=== PATIENT | male | born 1970 | race Caucasian/White ===

== ENCOUNTER → 2016-12-13 | Outpatient (CLI) | payer MEDICAID ==
[2016-12-13 07:57] LABS: CH 31.2; CHCM 34.2; HCT 47.3 % (39.0-53.0); HGB 15.8 gm/dL (13.0-17.5); MCH 30.7 pg (25.0-35.0); MCHC 33.5 g/dL (31.0-37.0); MCV 91.6 fL (80.0-100.0); Mean Platelet Volume 6.5; RBC 5.17 m/uL (4.30-5.90); RDW 12.4 % (11.5-15.5); WBC 6.9 k/uL (3.8-10.6)
[2016-12-13 08:04] LABS: ALT 77 U/L (21-72); AST 43 U/L (17-59); Alkaline Phosphatase 64 U/L (38-126); Anion Gap 11 mmol/L; Blood Urea Nitrogen 16 mg/dL (9-20); Calcium 9.6 mg/dL (8.4-10.2); Carbon Dioxide 28 mmol/L (22-30); Chloride 104 mmol/L (98-107); Cholesterol 191 mg/dL (<200); Glucose 116 mg/dL (74-99); HDL Cholesterol 37 mg/dL (40-60); Non-African American GFR(MDRD) >60 (>60 ml/min/1.73 sqM); Potassium 4.9 mmol/L (3.5-5.1); Sodium 143 mmol/L (137-145); Total Bilirubin 0.8 mg/dL (0.2-1.3); Triglycerides 262 mg/dL (<150)
[2016-12-13 08:59] LABS: Hemoglobin A1C 6.1 % (4.2-6.1)
== END | disposition home or self-care (01) ==
LOC: LABWHC1 07:03
PROVIDERS: ATTEND Internal Medicine
DX: E11.9 Type 2 diabetes mellitus without complications (principal); I10 Essential (primary) hypertension
CPT/HCPCS: 36415; 80053; 80061; 83036; 85027

== ENCOUNTER → 2017-07-25 | Outpatient (CLI) | payer MEDICAID ==
--- NOTE | 2017-07-25 12:44 | US ---
EXAMINATION TYPE: US thyroid st tissue head/neck DATE OF EXAM: 07/25/2017 COMPARISON: US 06/06. CLINICAL HISTORY: E04.1 Left thyroid nodule, prior benign biopsy Correlation to prior exam dated May. GLAND SIZE: Right Lobe: 5.8 x 1.9 x 1.7cm Overall Parenchyma: homogeneous Left Lobe: 5.5 x 1.7 x 2.1 cm Overall Parenchyma: homogeneous Isthmus Thickness: 0.6 cm NODULES RIGHT: # of nodules measured on right: 0 LEFT: # of nodules measured on left: 1 1. 1.7 x 1.2 x 1.8cm heterogeneous nodule with solid and cystic components at the lower pole. This nodule is wider than tall and shows some intranodular vascularity. It is noted that this nodule was p reviously biopsied with benign pathology. prior size: 2.0 x 1.2 x 1.7 cm ISTHMUS: # of nodules measured within isthmus: 0 Bilateral neck scanned, no evidence of lymphadenopathy. IMPRESSION: Stability of the previously biopsied pathologically proven benign left thyroid nodule in an enlarged thyroid gland.
== END | disposition home or self-care (01) ==
LOC: RADUSWWP 10:19
PROVIDERS: ATTEND Otolaryngology
DX: E04.1 Nontoxic single thyroid nodule (principal)
CPT/HCPCS: 76536

== ENCOUNTER → 2018-01-31 | Outpatient (CLI) | payer MEDICAID ==
[2018-01-31 08:06] LABS: HCT 48.4 % (39.0-53.0); HGB 16.2 gm/dL (13.0-17.5); MCH 29.8 pg (25.0-35.0); MCHC 33.4 g/dL (31.0-37.0); MCV 89.2 fL (80.0-100.0); Mean Platelet Volume 7.1; Platelet Count 260 k/uL (150-450); RBC 5.43 m/uL (4.30-5.90); RDW 12.1 % (11.5-15.5); WBC 7.3 k/uL (3.8-10.6)
[2018-01-31 08:52] LABS: ALT 110 U/L (21-72); AST 49 U/L (17-59); Albumin 4.5 g/dL (3.5-5.0); Alkaline Phosphatase 78 U/L (38-126); Anion Gap 14 mmol/L; Blood Urea Nitrogen 25 mg/dL (9-20); Calcium 9.7 mg/dL (8.4-10.2); Carbon Dioxide 26 mmol/L (22-30); Chloride 104 mmol/L (98-107); Cholesterol 188 mg/dL (<200); Glucose 130 mg/dL (74-99); HDL Cholesterol 37 mg/dL (40-60); LDL Cholesterol,Calculated 111 mg/dL (0-99); Potassium 5.1 mmol/L (3.5-5.1); Sodium 144 mmol/L (137-145); Total Bilirubin 0.7 mg/dL (0.2-1.3); Total Protein 7.1 g/dL (6.3-8.2); Triglycerides 200 mg/dL (<150)
[2018-01-31 19:08] LABS: Hemoglobin A1C 6.4 % (4.0-6.0)
== END | disposition home or self-care (01) ==
LOC: LABWHC1 07:29
PROVIDERS: ATTEND Internal Medicine
DX: E11.9 Type 2 diabetes mellitus without complications (principal); E78.5 Hyperlipidemia, unspecified
CPT/HCPCS: 36415; 80053; 80061; 83036; 84403; 85027

== ENCOUNTER → 2018-06-03 | Outpatient (CLI) | payer MEDICAID ==
[2018-06-03 10:08] LABS: Anion Gap 6 mmol/L; Blood Urea Nitrogen 18 mg/dL (9-20); Calcium 9.5 mg/dL (8.4-10.2); Carbon Dioxide 29 mmol/L (22-30); Chloride 104 mmol/L (98-107); Glucose 115 mg/dL (74-99); Potassium 4.7 mmol/L (3.5-5.1); Sodium 139 mmol/L (137-145)
== END | disposition home or self-care (01) ==
LOC: LABWHC1 08:54
PROVIDERS: ATTEND Internal Medicine
DX: E11.9 Type 2 diabetes mellitus without complications (principal)
CPT/HCPCS: 36415; 80048; 83036

== ENCOUNTER → 2018-09-24 | Outpatient (CLI) | payer MEDICAID ==
--- NOTE | 2018-09-24 12:01 | US ---
EXAMINATION TYPE: US thyroid st tissue head/neck DATE OF EXAM: 09/24/2018 COMPARISON: US CLINICAL HISTORY: E04.1 Left Thyroid Nodule. GLAND SIZE: Right Lobe: 5.8 x 2.4 x 1.7 cm Overall Parenchyma: heterogenous Left Lobe: 5.0 x 2.0 x 2.3 cm Overall Parenchyma: heterogeneous Isthmus Thickness: 0.7 cm NODULES RIGHT: # of nodules measured on right: 0 LEFT: # of nodules measured on left: 1 1. 1.8 X 1.3 x 1.4 cm isoechoic mixed nodule at the upper pole with well-defined margins. This nod ule is wider than tall and shows intranodular vascularity. Prior size: 1.7 x 1.2 x 1.8 cm ISTHMUS: # of nodules measured in the isthmus: 0 Bilateral neck scanned, no evidence of lymphadenopathy. IMPRESSION: Left thyroid nodule shows a stable appearance.
== END ==
LOC: RADUSWWP 09:10
PROVIDERS: ATTEND Otolaryngology
DX: E04.1 Nontoxic single thyroid nodule (principal)
CPT/HCPCS: 76536

== ENCOUNTER → 2018-10-01 | Outpatient (CLI) | payer MEDICAID ==
[2018-10-01 15:55] LABS: Anion Gap 5.9 mmol/L (4.00-12.00); Calcium 9.4 mg/dL (8.7-10.3); Carbon Dioxide 28.1 mmol/L (21.6-31.8)
[2018-10-01 16:41] LABS: Hemoglobin A1C 6.2 % (4.0-6.0)
== END | disposition home or self-care (01) ==
LOC: LABWHC1 08:26
PROVIDERS: ATTEND Internal Medicine
DX: E11.9 Type 2 diabetes mellitus without complications (principal); E78.5 Hyperlipidemia, unspecified; Z12.5 Encounter for screening for malignant neoplasm of prostate
CPT/HCPCS: 80061; 80048; 83036; 36415; G0103

== ENCOUNTER 2018-11-22 07:07 | Day surgery (SDC) | payer MEDICAID ==
[2018-11-20 15:07] VITALS: BMI 35.7
[~2018-11-22 07:07] MED LIST: LACTATED RINGERS 1,000 ML IV SCH; LIDOCAINE 1% 20 ML VIAL (10MG/ML) FOR IV START INTRADERMA PRN
[2018-11-22 07:38] VITALS: TEMP 97.3
[2018-11-22] MEDS ORDERED: LIDOCAINE 1% INJ 10MG/ML (20 ML MDV) ONE (07:49)
[2018-11-22] MEDS ORDERED: PROPOFOL 10 MG/ML 20 ML VIAL IV ONE (07:49)
--- NOTE | 2018-11-22 07:55 | P.GSHP ---
History of Present Illness H&P Date: 11/22/18 Chief Complaint: Colon cancer screening Patient here today for screening colonoscopy. He has not had one previously. No bowel complaints. No family history of colon cancer. Past Medical History Past Medical History: Diabetes Mellitus, GERD/Reflux, Hypertension, Thyroid Disorder Additional Past Medical History / Comment(s): Hx. of thyroid cyst. History of Any Multi-Drug Resistant Organisms: None Reported Past Surgical History: Cholecystectomy, Tonsillectomy Additional Past Surgical History / Comment(s): lt knee surgery, growth removed from throat. Varicose vein surgery. Past Anesthesia/Blood Transfusion Reactions: No Reported Reaction Smoking Status: Never smoker - Past Family History Mother Family Medical History: Cancer Additional Family Medical History / Comment(s): skin cancer Medications and Allergies Home Medications Medication Instructions Recorded Confirmed Type Aspirin 81 mg PO DAILY 06/28/16 11/22/18 History Atenolol [Tenormin] 25 mg PO DAILY 06/28/16 11/22/18 History Cinnamon Bark [Cinnamon] 500 mg PO DAILY 06/28/16 11/22/18 History Cyanocobalamin (Vitamin B-12) 5,000 mcg PO DAILY 06/28/16 11/22/18 History [Vitamin B12] Lisinopril [Zestril] 20 mg PO DAILY 06/28/16 11/22/18 History [place]-3 Fatty Acids/Fish Oil [Fish 1 each PO DAILY 06/28/16 11/22/18 History Oil 1,000 mg Softgel] Omeprazole [PriLOSEC] 20 mg PO AC-BRKFST 06/28/16 11/22/18 History metFORMIN HCL [Glucophage] 500 mg PO DAILY 06/28/16 11/22/18 History Cholecalciferol (Vitamin D3) 2,000 unit PO DAILY 11/20/18 11/22/18 History [Vitamin D3] Magnesium 200 mg PO DAILY 11/20/18 11/22/18 History Multivitamin [Multivitamins Adult 1 each PO DAILY 11/20/18 11/22/18 History Gummies] Turmeric Root Extract [Turmeric] 500 mg PO DAILY 11/20/18 11/22/18 History Allergies Allergy/AdvReac Type Severity Reaction Status Date / Time ibuprofen Allergy Swelling Verified 11/20/18 14:29 Penicillins Allergy Rash/Hives Verified 11/20/18 14:29 Surgical - Exam Vital Signs Temp Pulse Resp BP Pulse Ox 97.3 F L 71 18 137/87 95 11/22/18 07:30 11/22/18 07:30 11/22/18 07:30 11/22/18 07:30 11/22/18 07:30 Physical exam: General: Well-developed, well-nourished HEENT: Normocephalic, sclerae nonicteric Abdomen: Nontender, nondistended Extremities: No edema Neuro: Alert and oriented Assessment and Plan (1) Colon cancer screening Narrative/Plan: Will proceed with colonoscopy at this time Current Visit: Yes Status: Acute Code(s): Z12.11 - ENCOUNTER FOR SCREENING FOR MALIGNANT NEOPLASM OF COLON SNOMED Code(s): 978906841
[2018-11-22 07:59] LABS: Glucose,Whole Blood 138 mg/dL (75-99)
[2018-11-22 08:16] VITALS: RESP 16
[2018-11-22 08:32] VITALS: BP 125/88; PULSE 77
--- NOTE | 2018-11-22 10:33 | P.PCN ---
Date of Procedure: 11/22/18 Procedure(s) Performed: PREOPERATIVE DIAGNOSIS: Colon cancer screening POSTOPERATIVE DIAGNOSIS: Diverticulosis PROCEDURE: Colonoscopy ANESTHESIA: MAC SURGEON: Cirilo Oro M.D. SPECIMENS: None ENDOSCOPIC PROCEDURE: The patient was placed on the endoscopy table in the left decubitus position. The Olympus colonoscope was inserted into the anus and passed under direct visualization to the base of the cecum. The appendiceal orifice was visualized. From that point the scope was slowly withdrawn inspecting all surfaces carefully. There were no neoplastic inflammatory or polypoid lesions throughout the cecum, ascending, transverse, descending, sigmoid and rectum. There was mild left-sided diverticulosis noted. Digital rectal examination was normal. The patient was taken to the recovery room in stable condition per anesthesia guidelines. RECOMMENDATIONS: increase fiber. Follow-up colonoscopy in 10 years.
== END 2018-11-22 08:55 | disposition home or self-care (01) ==
LOC: ORWHC2ENDO 07:07
PROVIDERS: ATTEND Surgery
DX: Z12.11 Encounter for screening for malignant neoplasm of colon (principal); K57.30 Diverticulosis of large intestine without perforation or abscess without bleeding; E11.9 Type 2 diabetes mellitus without complications; K21.9 Gastro-esophageal reflux disease without esophagitis; I10 Essential (primary) hypertension; E07.9 Disorder of thyroid, unspecified; Z79.84 Long term (current) use of oral hypoglycemic drugs; Z79.82 Long term (current) use of aspirin; Z79.899 Other long term (current) drug therapy; Z88.6 Allergy status to analgesic agent; Z88.0 Allergy status to penicillin; Z90.49 Acquired absence of other specified parts of digestive tract
CPT/HCPCS: J2001; J2704; G0121

== ENCOUNTER → 2019-10-07 | Outpatient (CLI) | payer MEDICAID ==
--- NOTE | 2019-10-07 10:30 | US ---
EXAMINATION TYPE: US thyroid st tissue head/neck DATE OF EXAM: 10/07/2019 COMPARISON: Exams dating back to 07/25/2017. CLINICAL HISTORY: E04.1 THYROID NODULE. GLAND SIZE: Right Lobe: 5.5 x 2.5 x 1.7 cm Overall Parenchyma: heterogenous Left Lobe: 4.9 x 2.0 x 2.6 cm Overall Parenchyma: heterogeneous Isthmus Thickness: 0.5 cm NODULES RIGHT: # of nodules measured on right: 0 LEFT: # of nodules measured on left: 1 1. 1.8 X 1.5 x 1.6 cm hypoechoic solid nodule at the mid pole with well-defined margins. This nodu le is wider than tall and shows intranodular vascularity. Prior size: 1.8 x 1.3 x 1.4 cm ISTHMUS: # of nodules measured in the isthmus: 0 Bilateral neck scanned, no evidence of lymphadenopathy. IMPRESSION: Similar size of the left thyroid nodule in comparison to exams dating back to 07/25/2017.
== END | disposition home or self-care (01) ==
LOC: RADUSWWP 09:26
PROVIDERS: ATTEND Otolaryngology
DX: E04.1 Nontoxic single thyroid nodule (principal)
CPT/HCPCS: 76536

== ENCOUNTER → 2019-10-07 | Outpatient (CLI) | payer MEDICAID ==
[2019-10-07 17:15] LABS: Chol/HDL Ratio 4.34; LDL Cholesterol,Calculated 116.2 mg/dL (0.0-131.0); VLDL Calculation 30.8 mg/dL (5.00-40.00)
== END | disposition home or self-care (01) ==
LOC: LABWHC1 09:29
PROVIDERS: ATTEND Internal Medicine
DX: E78.5 Hyperlipidemia, unspecified (principal); E11.9 Type 2 diabetes mellitus without complications
CPT/HCPCS: 36415; 80061; 82043; 82570; 83036

== ENCOUNTER → 2019-10-13 | Outpatient (CLI) | payer MEDICAID ==
[2019-10-13 14:55] LABS: African American GFR (CKD) >90 (>60 ml/min/1.73 sqM); Blood Urea Nitrogen 17 mg/dL (9-20); Non-African American GFR(CKD) >90 (>60 ml/min/1.73 sqM)
--- NOTE | 2019-10-13 16:04 | CT ---
EXAMINATION TYPE: CT abdomen pelvis w con DATE OF EXAM: 10/13/2019 COMPARISON: 10/08/2016 HISTORY: Umbilical hernia and lower pelvic pain x2-[address] DLP: 1865.9 mGycm CONTRAST: CT scan of the abdomen and pelvis is performed with Oral Contrast and with IV Contrast, patient injec carmen with 100ml mL of Isovue 300. FINDINGS: LUNG BASES-: No visible nodule. No infiltrate. LIVER/GB: No calcified gallstones. No space occupying hepatic lesion. Biliary tree is of normal ca liber. Mild hepatic steatosis. PANCREAS: No inflammation. No distinct mass. SPLEEN: No splenic enlargement. No lesion seen. ADRENALS: No nodule. No thickening. KIDNEYS/BLADDER: No hydronephrosis. No nephrolithiasis. No distinct renal mass. Urinary bladder g rossly unremarkable. 9 mm right right renal cyst BOWEL: Normal appendix. Normal bowel caliber. No inflammation. GENITAL ORGANS: No gross abnormality. LYMPH NODES: No greater than 1cm abdominal or pelvic lymph nodes are appreciated. AORTA: No significant abnormality. OSSEOUS STRUCTURES: No significant abnormality is seen. OTHER: Fat-containing umbilical hernia measuring 1.7 x 3.0 cm. noted. IMPRESSION: 1. Fat-containing hernia otherwise unremarkable study. 2. Mild fatty liver.
== END | disposition home or self-care (01) ==
LOC: RADCTMAIN 13:49
PROVIDERS: ATTEND Surgery
DX: K76.0 Fatty (change of) liver, not elsewhere classified (principal); K42.9 Umbilical hernia without obstruction or gangrene
CPT/HCPCS: 82565; 84520; 74177; 36415; Q9967

== ENCOUNTER → 2020-04-30 | Outpatient (CLI) | payer MEDICAID | END | disposition home or self-care (01) | LOC: LABWHC1 11:44 | PROVIDERS: ATTEND Internal Medicine | DX: Z11.59 Encounter for screening for other viral diseases (principal); Z20.828 Contact with and (suspected) exposure to other viral communicable diseases | CPT/HCPCS: 36415 ==

== ENCOUNTER → 2020-09-27 | Outpatient (CLI) | payer MEDICAID ==
--- NOTE | 2020-09-29 22:49 | MR ---
EXAMINATION TYPE: MR shoulder RT wo con DATE OF EXAM: 09/27/2020 COMPARISON: Radiographs 06/20/2020 and priors HISTORY: Rt shoulder pain after fall TECHNIQUE: Multiplanar, multisequence imaging of the right shoulder is performed without contrast. FINDINGS: Rotator Cuff: High-grade articular surface, partial thickness of the supraspinatus tendon anterior fi bers. There is also moderate grade partial-thickness tear of the subscapularis tendon cranial fibers and infraspinatus tendon anterior fibers. The teres minor tendon is grossly intact. No significant mu scle atrophy or muscular edema. Acromioclavicular Joint: Severe osteoarthritis with moderate joint distention. There is increased mod erate T2 bone marrow signal within the distal clavicle articular surface. Glenohumeral Joint: Moderate osteoarthritis. Labrum: Degenerative tearing of the glenoid labrum. Biceps Tendon: The long head of biceps is in normal location within bicipital groove. Bone marrow signal: A 3.6 x 2.8 x 1.7 cm mildly heterogeneous low T1/low T2 bone marrow lesion in the proximal humeral diaphysis with mild increased T2 rim signal. Additional 1 x 0.8 cm bone marrow lesi on is also seen in the proximal humeral diaphysis, just distal to the larger lesion. The smaller lesi on is predominantly high T2/low T1 in signal with central low T1/low T2 focus. No evidence of osseous destruction, endosteal scalloping or aggressive periosteal reaction. No associated bone marrow edema or pathologic fracture. No soft tissue component. Other: No additional significant abnormality is appreciated. IMPRESSION: High-grade articular surface partial-thickness tear of the supraspinatus tendon. Moderate grade partial-thickness tear of the subscapularis and infraspinatus tendons. 2 proximal humerus bone marrow lesions with the larger measuring up to 3.6 cm without aggressive fea tures or soft tissue component. Findings date back to chest/rib radiographs from 03/04/2011, favoring benign entity such as enostosis/bone island. No evidence of pathologic fracture. Metastasis is felt to be less likely in the absence of known primary malignancy. However recommend fo llow-up contrast MRI in 6 months to one year to document stability as finding was partially imaged on prior radiographs. If there is development of pain or increase in size, contrast enhanced MRI should be performed sooner. Increased bone marrow signal in the articular right distal clavicle, can be seen with repetitive micr otrauma. Otherwise moderate to severe osteoarthritis of the acromioclavicular joint.
== END | disposition home or self-care (01) ==
LOC: RADMRIMAIN 10:27
PROVIDERS: ATTEND Orthopaedic Surgery
DX: M75.111 Incomplete rotator cuff tear or rupture of right shoulder, not specified as traumatic (principal); M25.811 Other specified joint disorders, right shoulder; M19.011 Primary osteoarthritis, right shoulder; R93.7 Abnormal findings on diagnostic imaging of other parts of musculoskeletal system

== ENCOUNTER → 2020-10-04 | Outpatient (CLI) | payer MEDICAID ==
--- NOTE | 2020-10-04 14:01 | US ---
EXAMINATION TYPE: US thyroid st tissue head/neck DATE OF EXAM: 10/04/2020 COMPARISON: US CLINICAL HISTORY: E04.1 Thyroid Nodule. GLAND SIZE: Right Lobe: 5.3 x 2.0 x 2.1 cm Overall Parenchyma: homogenous Left Lobe: 6.2 x 2.6 x 2.7 cm Overall Parenchyma: homogeneous Isthmus Thickness: 0.8 cm NODULES RIGHT: # of nodules measured on right: 0 LEFT: # of nodules measured on left: 2 1. 2.2 X 1.8 x 1.6 cm solid or almost completely solid, isoechoic nodule, which is wider than tall, with lobulated or irregular margins, with echogenic foci. Prior size: 1.8 x 1.6 x 1.5 cm 2. 1.0 X 1.1 x 0.8 cm spongiform, hypoechoic nodule, which is wider than tall, with ill-defined mar gins, without echogenic foci. Prior size: not seen previously ISTHMUS: # of nodules measured in the isthmus: 0 Bilateral neck scanned: inferior to right thyroid an oval hypoechoic nodule is seen (lymph node vs. p arathyroid nodule) = 0.8 x 0.9 x 0.4cm. IMPRESSION: Nonspecific thyroid nodularity noted.
== END | disposition home or self-care (01) ==
LOC: RADUSWWP 13:02
PROVIDERS: ATTEND Otolaryngology
DX: E04.1 Nontoxic single thyroid nodule (principal)
CPT/HCPCS: 76536

== ENCOUNTER 2020-10-29 13:00 | Day surgery (SDC) | payer MEDICAID ==
[2020-10-29 13:24] LABS: Glucose,Whole Blood 146 mg/dL (75-99)
[2020-10-29 13:34] VITALS: TEMP 98.7
[2020-10-29 14:29] VITALS: RESP 18
[2020-10-29 14:30] VITALS: BP 122/83; PULSE 80
--- NOTE | 2020-10-29 14:53 | US ---
ULTRASOUND GUIDED FNA THYROID BIOPSY: CLINICAL HISTORY: Request for right-sided subcentimeter nodule, lymph node or right parathyroid nodul e biopsy with left thyroid 1.1 cm biopsy. FINDINGS: The procedure was explained to the patient. The risks, complications, benefits and alternatives were discussed and any questions were answered. The right neck nodule could not be replicated on today's exam and therefore cannot be biopsied. Left neck roll was extending below the level of the clavicle and deep within the soft tissue the neck adjacent to the carotid artery. Safe percutaneous access could not be obtained. IMPRESSION: 1. Discontinued biopsy see above.
== END 2020-10-29 14:20 | disposition home or self-care (01) ==
LOC: RADPROMAIN 13:00
PROVIDERS: ATTEND Otolaryngology
DX: E04.1 Nontoxic single thyroid nodule (principal); Z53.09 Procedure and treatment not carried out because of other contraindication
CPT/HCPCS: 76536

== ENCOUNTER → 2022-10-25 | Outpatient (CLI) | payer MEDICAID ==
[2022-10-25 18:28] LABS: HCT 47.3 % (39.6-50.0); MCH 31.1 pg (27.0-32.0); MCHC 33.8 g/dL (32.0-37.0); MCV 91.8 fL (80.0-97.0); Mean Platelet Volume 9.9 fL (9.5-12.2); NRBC Per 100 WBC 0 /100 WBCS (0.0-0.0); Platelet Count 231 X 10*3/uL (140-440); RBC 5.15 X 10*6/uL (4.40-5.60); RDW 11.9 % (11.5-14.5); WBC 8.19 X 10*3/uL (4.50-10.00)
[2022-10-25 19:49] LABS: ALT 55 U/L (10-49); AST 31 U/L (14-35); African American GFR (CKD) 120.8 (60.0-200.0); Albumin/Globulin Ratio 2.35 (1.60-3.17); Alkaline Phosphatase 65 U/L (41-126); Blood Urea Nitrogen 13.5 mg/dL (9.0-27.0); Calcium 9.7 mg/dL (8.7-10.3); Carbon Dioxide 26.2 mmol/L (20.0-27.5); Chloride 101 mmol/L (96-109); Chol/HDL Ratio 5.12 Ratio; Globulin 2.1 g/dL (1.6-3.3); Glucose 149 mg/dL (70-110); LDL Cholesterol,Calculated 123.2 mg/dL (0.0-131.0); Non-African American GFR(CKD) 104.2 (60.0-200.0); Potassium 4.4 mmol/L (3.5-5.5); Sodium 139 mmol/L (135-145); Total Protein 7.1 g/dL (6.2-8.2)
== END | disposition home or self-care (01) ==
LOC: LABWHC1 13:01
PROVIDERS: ATTEND Family Medicine
DX: Z00.00 Encounter for general adult medical examination without abnormal findings (principal); E11.65 Type 2 diabetes mellitus with hyperglycemia
CPT/HCPCS: 36415; 80053; 80061; 83036; 84153; 84443; 85027

== ENCOUNTER → 2022-11-14 | Outpatient (CLI) | payer MEDICAID ==
--- NOTE | 2022-11-14 11:16 | CA ---
Exercise Stress Test Report Name: Jose D Arroyo Exam Date: 11/14/2022 09:03 Exam Location: [facility] Stress Ht (in): 68 Wt (lb): 225 BSA: 2.15 Ordering Phys: Heath Bowser MD Referring Phys: HARPREET, Technologist: MARIA,, Age: 52 Gender: M : 1970 Procedure CPT: Indications: Z82.49 FAM HX HEART DISEASE I10 HTN ICD-10 Codes: Patient History: Family history of heart disease Medications: Meds past 24 hrs: Pretest Chest Pain: STRESS TEST Chance Protocol Exercise Duration (min:sec): 11:[address] Depressions (mm): Angina Score: Alves Score: Resting HR (bpm): 88 Peak HR (bpm): 165 Resting BP (mmHg): 117 / 91 Peak BP (mmHg): 191 / 74 MPHR: 166 Target HR: 141 % MPHR: 99 METS: 12.1 Total Dose: Peak Dose: Atropine: Double Product: 90718 BP Response: Stress Termination: Reached target heart rate Stress Symptoms: No chest pain or symptoms Stress Summary: ECG ANALYSIS Resting ECG: Normal sinus rhythm normal axis normal intervals with evidence of prior inferior wall myocardial infarction Stress ECG: Patient exercised on Chance protocol for a total of 11 minutes achieving 12 mets 85% of predicted maximal heart rate without chest pain or diagnostic ST segment depression CONCLUSIONS Excellent exercise tolerance Negative stress test by EKG criteria Abnormal baseline EKG showing prior inferior wall myocardial infarction Dr. Shabbir Max MD (Electronically Signed) Final Date: 14 November 2022 11:15
== END | disposition home or self-care (01) ==
LOC: RADNMMAIN 08:36
PROVIDERS: ATTEND Family Medicine
DX: I10 Essential (primary) hypertension (principal); I25.2 Old myocardial infarction; Z82.49 Family history of ischemic heart disease and other diseases of the circulatory system
CPT/HCPCS: 93017

== ENCOUNTER → 2023-01-29 | Outpatient (CLI) | payer MEDICAID ==
[2023-01-29 11:18] LABS: HCT 43.3 % (39.6-50.0); HGB 14.8 g/dL (13.0-17.0); MCH 30.8 pg (27.0-32.0); MCHC 34.2 g/dL (32.0-37.0); Mean Platelet Volume 10.2 fL (9.5-12.2); NRBC Per 100 WBC 0 /100 WBCS (0.0-0.0); Platelet Count 199 X 10*3/uL (140-440); RBC 4.81 X 10*6/uL (4.40-5.60); RDW 11.7 % (11.5-14.5); WBC 6.41 X 10*3/uL (4.50-10.00)
[2023-01-29 11:22] LABS: African American GFR (CKD) 122.3 (60.0-200.0); Albumin 4.4 g/dL (3.8-4.9); Albumin/Globulin Ratio 2.19 (1.60-3.17); Anion Gap 10.6 mmol/L (10.00-18.00); BUN/Creat Ratio 27.9 Ratio (12.00-20.00); Blood Urea Nitrogen 20.2 mg/dL (9.0-27.0); Calcium 9.5 mg/dL (8.7-10.3); Non-African American GFR(CKD) 105.5 (60.0-200.0); Potassium 4.5 mmol/L (3.5-5.5); T4, Free (Free Thyroxine) 1.32 ng/dL (0.800-1.800); Total Bilirubin 0.4 mg/dL (0.30-1.20); Total Protein 6.4 g/dL (6.2-8.2)
== END | disposition home or self-care (01) ==
LOC: LABWHC1 07:27
PROVIDERS: ATTEND Family Medicine
DX: E11.59 Type 2 diabetes mellitus with other circulatory complications (principal); R53.83 Other fatigue
CPT/HCPCS: 36415; 80053; 84439; 84443; 84480; 85027

== ENCOUNTER → 2023-02-01 | Outpatient (CLI) | payer MEDICAID ==
--- NOTE | 2023-02-01 11:39 | US ---
EXAMINATION TYPE: US carotid duplex BILAT DATE OF EXAM: 02/01/2023 COMPARISON: NONE CLINICAL HISTORY: I25.10ATHSCL HEART DISEASE OF [place] CORONAR. Atherosclerotic disease. TECHNIQUE: Carotid duplex ultrasound examination. Indirect Doppler criteria was utilized. FINDINGS: EXAM MEASUREMENTS: RIGHT: Peak Systolic Velocity (PSV) cm/sec ----- Right CCA: 91.9 ----- Right ICA: 85.3 ----- Right ECA: 108.2 ICA/CCA ratio: 0.9 RIGHT: End Diastole cm/sec ----- Right CCA: 35.8 ----- Right ICA: 41.3 ----- Right ECA: 31.8 LEFT: Peak Systolic Velocity (PSV) cm/sec ----- Left CCA: 101.8 ----- Left ICA: 85.1 ----- Left ECA: 139.9 ICA/CCA ratio: 0.8 LEFT: End Diastole cm/sec ----- Left CCA: 34.7 ----- Left ICA: 34.5 ----- Left ECA: 31.7 VERTEBRALS (direction of flow): Right Vertebral: Antegrade Left Vertebral: Antegrade Rhythm: Normal FAMILY WORKER NOTES: Elevated velocity within left ECA*. Intimal thickening seen within bilateral franklin tid arteries. Plaque seen within bilateral bulbs. IMPRESSION: 1. No significant flow-limiting stenosis based on velocities within the internal carotid arteries. 2. Atheromatous plaquing, which is hard with shadowing. Criteria for Assigning % of Stenosis / Diameter reduction (Estimation based on the indirect measurements of the internal carotid artery velocities (ICA PSV). 1. Normal (no stenosis)=ICA PSV < 125 cm/s: ratio < 2.0: ICA EDV<40 cm/s. 2. Less than 50% stenosis=ICA PSV < 125 cm/s: ratio < 2.0: ICA EDV<40 cm/s. 3. 50 to 69% stenosis=ICA PSV of 125 to 230 cm/s: ration 2.0 ? 4.0: ICA EDV 40-100 cm/s. 4. Greater than 70% stenosis to near occlusion= ICA PSV > 230 cm/s: ratio > 4.0: ICA EDV > 100 cm/s. 5. Near occlusion= ICA PSV velocities may be low or undetectable: variable ratio and ICA EDV. 6. Total occlusion=unable to detect flow.
--- NOTE | 2023-02-01 17:48 | CA ---
Stress Echo Report Jose D Arroyo Age: 52 Gender: M : 1970 Exam Date: 02/01/2023 10:12 Exam Location: [facility] Ht (in): 69 Wt (lb): 225 Ordering Physician: Shabbir Max MD ([id number]) Referring Physician: Shabbir Max MD ([id number]) Integrated Circuit Fabricator: SARAI, Technologist Procedure CPT: Indication: I25.10 E78.1 ICD-9 Codes: Rhythm: Patient History: Hypertension and family history of heart disease Cardiac Medications: Medications in past 24 hours: Contrast: Stress Results Protocol: Chance Total dose(mL): Exercise Duration (min:sec): Max ST Depression (mm): Angina Score: Alves Score: METS: 12.1 Resting HR: 94 Resting BP: 113 / 83 Peak HR: 156 Peak BP: 139 / 77 Max Predicted HR: 166 94 % Max Predicted HR Target HR: 141 Double Product: [id number] Stress Summary: BP Response: Reason for Termination: MAX EXERTION/TARGET HR Cardiac Symptoms: DIFFICULTY IN BREATHING ECG Analysis Resting ECG: Stress ECG: Arrhythmia: Echo Analysis Resting Echo: Peak Echo Analysis: MEASUREMENTS (Male/Female) Normal Values CONCLUSIONS Exercise stress echo Baseline heart rate 94 beats a minute, Baseline blood pressure 113/83 mmHg Baseline twelve-lead EKG shows sinus mechanism normal ST segments Patient exercised on a Chance protocol for 11 minutes 5 seconds achieving a peak heart rate of 155 beats a minute. Normal blood pressure response to exercise No arrhythmias No ECG ms for ischemia Baseline pulmonary echo images showed left ventricular ejection fraction of 50% no wall motion abnormalities With exercise there was excellent augmentation of oral and contractility without development of any wall motion abnormalities @Recovery, regional and global LV systolic function remained normal Impression good exercise capacity on a Chance protocol. No ECG or echocardiographic evidence for ischemia Dr. Shalom Marroquin MD (Electronically Signed) Final Date: 01 February 2023 17:47
== END | disposition home or self-care (01) ==
LOC: RADNMMAIN 09:44
PROVIDERS: ATTEND Internal Medicine Cardiovascular Disease
DX: I25.10 Atherosclerotic heart disease of native coronary artery without angina pectoris (principal); E78.1 Pure hyperglyceridemia; I65.23 Occlusion and stenosis of bilateral carotid arteries
CPT/HCPCS: 93351; 93880

== ENCOUNTER → 2023-03-09 | Day surgery (SDC) | payer MEDICAID ==
[2023-03-06 11:37] VITALS: BMI 32.9
[~2023-03-09] MED LIST changes: +ACETAMINOPHEN TAB 325 MG TAB PO SCH; +ACETAMINOPHEN TAB 500 MG TAB PO PRN; +BUPIVACAINE (PF) 0.25% 30 ML VIAL SQ ONE; +DEXAMETHASONE SOD PHOSPHATE 4 MG/ML 1 ML VIAL IV ONE; +HEPARIN SODIUM,PORCINE/PF 5,000 UNIT/0.5 ML SYRINGE SQ PRN; +IBUPROFEN 600 MG TAB PO SCH; -LIDOCAINE 1% 20 ML VIAL (10MG/ML) FOR IV START INTRADERMA PRN; +LIDOCAINE 2% INJ 20 MG/ML (2 ML VIAL) ONE; +MIDAZOLAM 2 MG/2 ML VIAL IV PRN; +MIDAZOLAM 2 MG/2 ML VIAL ONE; +ONDANSETRON 4 MG/2 ML VIAL IVP ONE; +ONDANSETRON ODT 4 MG TAB PO ONE; +PROPOFOL 10 MG/ML 20 ML VIAL IV ONE; +SCOPOLAMINE 1 MG/72 HR PATCH TRANSDERM ONE; +SUCCINYLCHOLINE CHLORIDE 200 MG/10 ML VIAL IV ONE; +fentaNYL (PF) 50 MCG/ML 2 ML AMP ONE
[2023-03-09 11:04] LABS: Glucose,Whole Blood 101 mg/dL (70-110)
[2023-03-09 13:23] VITALS: TEMP 97
[2023-03-09] MEDS: HYDROmorphone 0.5 MG/0.5 ML SYRINGE IVP PRN ×3 (13:25→14:22)
--- NOTE | 2023-03-09 13:26 | P.OP ---
Date of Procedure: 03/09/23 Procedure(s) Performed: PREOPERATIVE DIAGNOSIS: Incarcerated umbilical hernia POSTOPERATIVE DIAGNOSIS: Incarcerated umbilical hernia PROCEDURE: Open repair incarcerated umbilical hernia with mesh SURGEON: Dr. Oro ANESTHESIA: General OPERATIVE PROCEDURE DETAILS: The patient was placed in the operating table in the supine position. A curvilinear supraumbilical incision was made using the scalpel. The subcutaneous tissues were dissected bluntly and with cautery. The hernia sac was identified. The umbilical attachments to the fascia were divided using electrocautery. The hernia sac was excised. The defect in the fascia measured 15 x 10 mm. The fat overlying the fascia was dissected. No additional defects were seen. The preperitoneal space was then dissected using blunt dissection and electrocautery. The 4.3 cm ventral ex mesh was placed beneath the fascia and sutured in place using trans-fascial 0 Ethibond sutures. The defect was closed using interrupted vest over pants 0 Ethibond mattress sutures. The subcutaneous tissues were reapproximated using inverted 2-0 & 3-0 Vicryl sutures. The umbilicus was tacked back down to the fascia using a 2-0 Vicryl suture. The skin was closed using 4-0 Monocryl sutures. Skin glue and sterile dressings were then applied. HERNIA CHARACTERISTICS: Length: 15 mm Width: 10 mm Type: Incarcerated umbilical TYPE OF MESH USED: Round 4.3 cm ventral ex LOCATION OF MESH: Sub-lay FIXATION: Trans-fascial 0 Ethibond PREOPERATIVE DISCUSSION ON SMOKING CESSASTION: Yes PREOPERATIVE DISCUSSION ON MORBID OBESITY: Yes PREOPERATIVE DISCUSSION ON APPROPRIATE USE OF NARCOTIC USE: Yes PREOPERATIVE EDUCATION: Multi Modal, Smoking Cessation and Weight Loss with BMI over 35. DISPOSITION: Stable to recovery room
[2023-03-09 15:11] VITALS: PULSE 89; RESP 18
[2023-03-09 15:14] VITALS: BP 150/90
== END ==
LOC: OR 10:34
PROVIDERS: ATTEND Surgery
DX: K42.0 Umbilical hernia with obstruction, without gangrene (principal); I10 Essential (primary) hypertension; E11.9 Type 2 diabetes mellitus without complications; K21.9 Gastro-esophageal reflux disease without esophagitis; K76.0 Fatty (change of) liver, not elsewhere classified; E07.9 Disorder of thyroid, unspecified; Z79.899 Other long term (current) drug therapy; Z85.79 Personal history of other malignant neoplasms of lymphoid, hematopoietic and related tissues; Z92.3 Personal history of irradiation; Z88.0 Allergy status to penicillin; Z88.6 Allergy status to analgesic agent; Z79.84 Long term (current) use of oral hypoglycemic drugs; Z79.82 Long term (current) use of aspirin; Z90.49 Acquired absence of other specified parts of digestive tract
CPT/HCPCS: 49592; C1781; J2250; J0330; J1100; J0690; J2405; J3010; J2704; J1170; J1644; J2001; 88302

== ENCOUNTER 2023-03-24 15:51 | Emergency (ER) | payer MEDICAID ==
[2023-03-24 15:59] VITALS: TEMP 98.1
[2023-03-24] MEDS ORDERED: SODIUM CHLORIDE 0.9% 1,000 ML IV STA (17:59)
[2023-03-24] MEDS ORDERED: HYDROmorphone 0.5 MG/0.5 ML SYRINGE IVP STA ×2 (18:16→20:40)
[2023-03-24 18:45] LABS: Basophils % (A) 0 %; Eosinophils # (A) 0.1 k/uL (0-0.7); Eosinophils % (A) 1 %; HCT 46.3 % (39.0-53.0); HGB 15.8 gm/dL (13.0-17.5); Lymphocytes # (A) 1.5 k/uL (1.0-4.8); Lymphocytes % (A) 20 %; MCH 31.2 pg (25.0-35.0); MCHC 34.1 g/dL (31.0-37.0); MCV 91.5 fL (80.0-100.0); Mean Platelet Volume 7.2; Monocytes # (A) 0.4 k/uL (0-1.0); Monocytes % (A) 5 %; Neutrophils % (A) 69 %; Platelet Count 245 k/uL (150-450); RBC 5.06 m/uL (4.30-5.90); WBC 7.3 k/uL (3.8-10.6)
[2023-03-24 18:57] LABS: ALT 56 U/L (4-49); AST 30 U/L (17-59); African American GFR (CKD) >90 (>60 ml/min/1.73 sqM); Albumin 4.5 g/dL (3.5-5.0); Alkaline Phosphatase 88 U/L (38-126); Anion Gap 9 mmol/L; Blood Urea Nitrogen 20 mg/dL (9-20); Calcium 9.4 mg/dL (8.4-10.2); Carbon Dioxide 28 mmol/L (22-30); Chloride 103 mmol/L (98-107); Glucose 113 mg/dL (74-99); Lipase 96 U/L (23-300); Non-African American GFR(CKD) >90 (>60 ml/min/1.73 sqM); Potassium 4.2 mmol/L (3.5-5.1); Sodium 140 mmol/L (137-145); Total Bilirubin 0.5 mg/dL (0.2-1.3); Total Protein 7.1 g/dL (6.3-8.2)
[2023-03-24 19:00] LABS: Appearance,Urine Clear (Clear); Bilirubin,Urine Negative (Negative); Blood,Urine Negative (Negative); Color,Urine Yellow; Glucose,Urine (UA) Negative (Negative); Ketones,Urine Negative (Negative); Leukocyte Esterase,Urine Negative (Negative); Nitrite,Urine Negative (Negative); Protein,Urine Negative (Negative); Specific Gravity,Urine 1.022 (1.001-1.035); Urobilinogen,Urine <2.0 mg/dL (<2.0)
--- NOTE | 2023-03-24 20:14 | CT ---
EXAMINATION TYPE: CT abdomen pelvis w con CT DLP: 1713.3 mGycm, Automated exposure control for dose reduction was used. DATE OF EXAM: 03/24/2023 7:59 PM COMPARISON: CT abdomen pelvis most recent from 02/12/2023 CLINICAL INDICATION:Male, 53 years old with history of pain s/p umbilical hernia repair; abdominal pa in post-op hernia repair TECHNIQUE: Axial CT of the abdomen and pelvis. Sagittal and coronal reformats were created on a [employer] workstation. Contrast used:100 mL of Isovue 300 with IV Contrast, Oral contrast used: without Oral Contrast FINDINGS: LOWER CHEST: Unremarkable ABDOMEN LIVER: Unremarkable GALLBLADDER AND BILE DUCTS: The gallbladder surgically absent.e PANCREAS: Unremarkable. SPLEEN: Unremarkable. ADRENAL GLANDS: Unremarkable. KIDNEYS AND URETERS: No evidence of hydronephrosis or renal calculus. The ureters are unremarkable. Right hepatic cyst. PELVIS BLADDER: Unremarkable REPRODUCTIVE: Unremarkable. ABDOMEN & PELVIS STOMACH AND BOWEL: No evidence of bowel obstruction. Scattered colonic diverticula. There is a large stool burden throughout the colon. The appendix is normal. PERITONEUM/RETROPERITONEUM: No evidence of pneumoperitoneum or free fluid. VASCULATURE: No evidence of aortic aneurysm. MUSCULOSKELETAL: No acute osseous abnormalities, grade 1 anterior base of L4 and L5 with bilateral sp ondylolysis. LYMPH NODES: No gross evidence for lymphadenopathy. SOFT TISSUE/ABDOMINAL WALL: Left fat-containing inguinal hernia. Post umbilical hernia repair changes . No evidence of subcutaneous gas or organizing fluid collection. No persistent hernia visualized. Mi ld atrophy changes around the umbilicus felt to be post surgical in appropriate time from the prior s urgery. There may be small fluid collection circumscribing the umbilicus. IMPRESSION: 1. Post repair changes to the umbilical hernia. No persistent hernia. Fat stranding changes around t he umbilicus as well as possible small seroma circumscribing the umbilicus subcutaneous tissues. Cons ider evaluation by ultrasound. 2. No acute intra-abdominal process. 3. 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
[2023-03-24] MEDS ORDERED: ACET/COD 300 MG/30 MG STARTER PACK 6 TAB BTL PO STA (21:09)
--- NOTE | 2023-03-24 21:16 | ED ---
Abdominal Pain HPI - General Chief Complaint: Abdominal Pain Stated Complaint: ABD PAIN-POST HERNIA SURGERY Time Seen by Provider: 03/24/23 17:58 Source: patient Mode of arrival: ambulatory Limitations: no limitations - History of Present Illness Initial Comments: Patient is a 53-year-old male presents to emergency department for abdominal pain. Patient had umbilical hernia surgery [address] Oro. Patient states he has been feeling well as pain has been controlled with Tylenol and Motrin until a couple days ago when he started to have increased pain in the region. He denies fever, chills, nausea, vomiting. No change in bowel habits. Patient had normal bowel movement this morning, nonbloody. He denies burning with urination, blood in the urine, trouble urinating. Patient hernia follow-up with Dr. Oro and has another appointment on Sunday. - Related Data Home Medications Medication Instructions Recorded Confirmed [place]-3 Fatty Acids/Fish Oil [Fish 1 tab PO DAILY 06/28/16 03/24/23 Oil 1,000 mg Softgel] Omeprazole [PriLOSEC] 20 mg PO AC-BRKFST 06/28/16 03/24/23 atenoloL [Tenormin] 25 mg PO DAILY 06/28/16 03/24/23 lisinopriL [Zestril] 20 mg PO DAILY 06/28/16 03/24/23 Multivitamin [Multivitamins Adult 1 tab PO DAILY 11/20/18 03/24/23 Gummies] Acetaminophen Tab [Tylenol Tab] 500 - 1,000 mg PO Q4-6H PRN 03/06/23 03/24/23 Ibuprofen 600 mg PO QID PRN 03/06/23 03/24/23 Phentermine HCl 18.75 mg PO DAILY 03/06/23 03/24/23 Tirzepatide [Mounjaro] 2.5 mg SQ MO 03/06/23 03/24/23 Acyclovir 5% Oint [Zovirax Oint] 1 applic TOPICAL BID PRN 03/24/23 03/24/23 Amitriptyline HCl 10 mg PO HS 03/24/23 03/24/23 Hydrocortisone Oint 1 applic TOPICAL BID PRN 03/24/23 03/24/23 [Hydrocortisone 2.5% Oint] Pravastatin Sodium [Pravachol] 20 mg PO HS 03/24/23 03/24/23 Triamcinolone 0.1% Cream [Kenalog 1 applicatio TOPICAL BID PRN 03/24/23 03/24/23 0.1% Cream] tadalafiL 20 mg PO Q48H PRN 03/24/23 03/24/23 Previous Rx's Medication Instructions Recorded HYDROcodone/APAP 7.5-325MG [[place] 1 tab PO Q4HR PRN 3 Days #18 tab 03/24/23 7.5-325] Allergies Allergy/AdvReac Type Severity Reaction Status Date / Time Penicillins Allergy Rash/Hives Verified 03/24/23 20:46 ibuprofen AdvReac Swelling Verified 03/24/23 20:46 Review of Systems ROS Statement: Those systems with pertinent positive or pertinent negative responses have been documented in the HPI. ROS Other: All systems not noted in ROS Statement are negative. 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 Thyroid nodule - stable. "Liver enzymes high due to diet". Torn left lateral meniscus. History of Any Multi-Drug Resistant Organisms: None Reported Past Surgical History: Cholecystectomy, Hernia Repair, Orthopedic Surgery Additional Past Surgical History / Comment(s): Left knee surgery, growth removed from throat(myoplasma cytoma), varicose vein procedure. Past Anesthesia/Blood Transfusion Reactions: No Reported Reaction Past Psychological History: No Psychological Hx Reported Smoking Status: Never smoker Past Alcohol Use History: None Reported Past Drug Use History: Marijuana - Past Family History Mother Family Medical History: Cancer Additional Family Medical History / Comment(s): Skin cancer. General Exam Limitations: no limitations General appearance: alert Head exam: Present: atraumatic, normocephalic, normal inspection Respiratory exam: Present: normal lung sounds bilaterally. Absent: respiratory distress, wheezes, rales, rhonchi, stridor Cardiovascular Exam: Present: regular rate, normal rhythm, normal heart sounds. Absent: systolic murmur, diastolic murmur, rubs, gallop, clicks GI/Abdominal exam: Present: soft, tenderness (mild just inferior to umbilicus ), normal bowel sounds. Absent: distended, guarding, rebound, rigid Neurological exam: Present: alert, oriented X3, CN II-XII intact Psychiatric exam: Present: normal affect, normal mood Skin exam: Present: warm, dry, intact, normal color. Absent: rash Course Vital Signs 03/24/23 03/24/23 15:56 21:15 Temperature 98.1 F Pulse Rate 90 94 Respiratory 18 16 Rate Blood Pressure 130/86 135/95 O2 Sat by Pulse 99 98 Oximetry Medical Decision Making - Medical Decision Making Was pt. sent in by a medical professional or institution (, PA, PRE SCHOOL MANAGER, urgent care, hospital, or senior care...) When possible be specific @ -No Did you speak to anyone other than the patient for history (EMS, parent, family, police, friend...)? What history was obtained from this source @ -No Did you review nursing and triage notes (agree or disagree)? Why? @ -I reviewed and agree with nursing and triage notes Were old charts reviewed (outside hosp., previous admission, EMS record, old EKG, old radiological studies, urgent care reports/EKG's, senior care records)? Report findings @ -No old charts were reviewed Differential Diagnosis (chest pain, altered mental status, abdominal pain women, abdominal pain men, vaginal bleeding, weakness, fever, dyspnea, syncope, headache, dizziness, GI bleed, back pain, seizure, CVA, palpatations, mental health)? @ -Differential Abdominal Pain Men: Appendicitis, cholecystitis, diverticulosis, ischemic bowel, pancreatitis, hepatitis, UTI, gastroenteritis, AAA, incarcerated hernia, bowel obstruction, constipation, inflammatory bowel, hepatitis, peptic ulcer disease, splenic infarction, perforated viscus, testicular torsion, this is not meant to be an all-inclusive list EKG interpreted by me (3pts min.). @ -As above X-rays interpreted by me (1pt min.). @ -None done CT interpreted by me (1pt min.). @ -Yes, no acute intra-abdominal process. There is possible seroma U/S interpreted by me (1pt. min.). @ -None done What testing was considered but not performed or refused? (CT, X-rays, U/S, labs)? Why? @ -None What meds were considered but not given or refused? Why? @ -None Did you discuss the management of the patient with other professionals (professionals i.e. , PA, PRE SCHOOL MANAGER, lab, RT, psych nurse, clinical social work aide, commutator operator, teacher, sustainability officer, wrapper caser)? Give summary @ -No Was smoking cessation discussed for >3mins.? @ -No Was critical care preformed (if so, how long)? @ -No Were there social determinants of health that impacted care today? How? (Homelessness, low income, unemployed, alcoholism, drug addiction, transportation, low edu. Level, literacy, decrease access to med. care, group home, rehab)? @ -No Was there de-escalation of care discussed even if they declined (Discuss DNR or withdrawal of care, Hospice)? DNR status @ -No What co-morbidities impacted this encounter? (DM, HTN, Smoking, COPD, CAD, Cancer, CVA, ARF, Chemo, Hep., AIDS, mental health diagnosis, sleep apnea, morbi d obesity)? @ -None Was patient admitted / discharged? Hospital course, mention meds given and route, prescriptions, significant lab abnormalities, going to OR and other pertinent info. @ -Patient presenting for postop pain. The abdomen is soft there is mild tenderness just inferior to the umbilicus. Labs obtained are relatively unremarkable. Abdominal CT interpreted by myself/radiology shows no persistent hernia. There are some fat changes around the umbilicus as well as possible small seroma circumcising the umbilicus subcutaneous tissues. Otherwise there is no acute intra abdominal process. Results discussed with patient. Patient is nontoxic appearing vitals are within normal limits. He has no fever, no vomiting. Pain is controlled. He is in stable medical condition for discharge. Patient will be discharged with pain m anagement. He will follow up with Dr. Oro on Sunday as scheduled. Undiagnosed new problem with uncertain prognosis? @ -No] Drug Therapy requiring intensive monitoring for toxicity (Heparin, Nitro, Insulin, Cardizem)? @ -[No] Were any procedures done? @ -[No] Diagnosis/symptom? @ -post op pain Acute, or Chronic, or Acute on Chronic? @ -acute Uncomplicated (without systemic symptoms) or Complicated (systemic symptoms)? @ -uncomplicated Side effects of treatment? @ -[No] Exacerbation, Progression, or Severe Exacerbation? @ -[No] Poses a threat to life or bodily function? How? (Chest pain, [place], CO, pneumonia, PE, COPD, DKA, ARF, appy, cholecystitis, CVA, Diverticulitis, Homicidal, Suicidal, threat to staff... and all critical care pts) @ -[No] Dr. Curiel is my attending - Lab Data Result diagrams: 03/24/23 18:30 03/24/23 18:30 Lab Results 03/24/23 03/24/23 03/24/23 Range/Units 18:30 18:30 18:30 WBC 7.3 (3.8-10.6) k/uL RBC 5.06 (4.30-5.90) m/uL Hgb 15.8 (13.0-17.5) gm/dL Hct 46.3 (39.0-53.0) % MCV 91.5 (80.0-100.0) fL MCH 31.2 (25.0-35.0) pg MCHC 34.1 (31.0-37.0) g/dL RDW 12.0 (11.5-15.5) % Plt Count 245 (150-450) k/uL MPV 7.2 Neutrophils % 69 % Lymphocytes % 20 % Monocytes % 5 % Eosinophils % 1 % Basophils % 0 % Neutrophils # 5.0 (1.3-7.7) k/uL Lymphocytes # 1.5 (1.0-4.8) k/uL Monocytes # 0.4 (0-1.0) k/uL Eosinophils # 0.1 (0-0.7) k/uL Basophils # 0.0 (0-0.2) k/uL Sodium 140 (137-145) mmol/L Potassium 4.2 (3.5-5.1) mmol/L Chloride 103 (98-107) mmol/L Carbon Dioxide 28 (22-30) mmol/L Anion Gap 9 mmol/L BUN 20 (9-20) mg/dL Creatinine 0.62 L (0.66-1.25) mg/dL Est GFR (CKD-EPI)AfAm >90 (>60 ml/min/1.73 sqM) Est GFR (CKD-EPI)NonAf >90 (>60 ml/min/1.73 sqM) Glucose 113 H (74-99) mg/dL Plasma Lactic Acid Freedom 0.9 (0.7-2.0) mmol/L Calcium 9.4 (8.4-10.2) mg/dL Total Bilirubin 0.5 (0.2-1.3) mg/dL AST 30 (17-59) U/L ALT 56 H (4-49) U/L Alkaline Phosphatase 88 (38-126) U/L Total Protein 7.1 (6.3-8.2) g/dL Albumin 4.5 (3.5-5.0) g/dL Lipase 96 (23-300) U/L Urine Color Urine Appearance (Clear) Urine pH (5.0-8.0) Ur Specific [place] (1.001-1.035) Urine Protein (Negative) Urine Glucose (UA) (Negative) Urine Ketones (Negative) Urine Blood (Negative) Urine Nitrite (Negative) Urine Bilirubin (Negative) Urine Urobilinogen (<2.0) mg/dL Ur Leukocyte Esterase (Negative) 03/24/23 Range/Units 18:45 WBC (3.8-10.6) k/uL RBC (4.30-5.90) m/uL Hgb (13.0-17.5) gm/dL Hct (39.0-53.0) % MCV (80.0-100.0) fL MCH (25.0-35.0) pg MCHC (31.0-37.0) g/dL RDW (11.5-15.5) % Plt Count (150-450) k/uL MPV Neutrophils % % Lymphocytes % % Monocytes % % Eosinophils % % Basophils % % Neutrophils # (1.3-7.7) k/uL Lymphocytes # (1.0-4.8) k/uL Monocytes # (0-1.0) k/uL Eosinophils # (0-0.7) k/uL Basophils # (0-0.2) k/uL Sodium (137-145) mmol/L Potassium (3.5-5.1) mmol/L Chloride (98-107) mmol/L Carbon Dioxide (22-30) mmol/L Anion Gap mmol/L BUN (9-20) mg/dL Creatinine (0.66-1.25) mg/dL Est GFR (CKD-EPI)AfAm (>60 ml/min/1.73 sqM) Est GFR (CKD-EPI)NonAf (>60 ml/min/1.73 sqM) Glucose (74-99) mg/dL Plasma Lactic Acid Freedom (0.7-2.0) mmol/L Calcium (8.4-10.2) mg/dL Total Bilirubin (0.2-1.3) mg/dL AST (17-59) U/L ALT (4-49) U/L Alkaline Phosphatase (38-126) U/L Total Protein (6.3-8.2) g/dL Albumin (3.5-5.0) g/dL Lipase (23-300) U/L Urine Color Yellow Urine Appearance Clear (Clear) Urine pH 6.0 (5.0-8.0) Ur Specific [place] 1.022 (1.001-1.035) Urine Protein Negative (Negative) Urine Glucose (UA) Negative (Negative) Urine Ketones Negative (Negative) Urine Blood Negative (Negative) Urine Nitrite Negative (Negative) Urine Bilirubin Negative (Negative) Urine Urobilinogen <2.0 (<2.0) mg/dL Ur Leukocyte Esterase Negative (Negative) Disposition Clinical Impression: Post-op pain, Seroma Disposition: HOME SELF-CARE Condition: Good Instructions (If sedation given, give patient instructions): Abdominal Pain (E D) Additional Instructions: Take medication as directed. Do not take Tylenol 3 and [place] together. Follow- up with Dr. Oro on Sunday as planned. Return to the emergency department if you experience new, concerning, or worsening symptoms. Prescriptions: HYDROcodone/APAP 7.5-325MG [[place] 7.5-325] 1 tab PO Q4HR PRN 3 Days #18 tab PRN Reason: Pain Is patient prescribed a controlled substance at d/c from ED?: No Referrals: Heath Bowser MD [Primary Care Provider] - 1-2 days
[2023-03-24 21:41] VITALS: BP 135/95; PULSE 94; RESP 16
== END 2023-03-24 21:15 | disposition home or self-care (01) ==
LOC: EC 15:51
DX: G89.18 Other acute postprocedural pain (principal); L76.34 Postprocedural seroma of skin and subcutaneous tissue following other procedure; E11.9 Type 2 diabetes mellitus without complications; I10 Essential (primary) hypertension; K21.9 Gastro-esophageal reflux disease without esophagitis; M19.90 Unspecified osteoarthritis, unspecified site; F12.90 Cannabis use, unspecified, uncomplicated; Z88.0 Allergy status to penicillin; Z88.6 Allergy status to analgesic agent; Z79.899 Other long term (current) drug therapy
CPT/HCPCS: 36415; 80053; 83605; 83690; 85025; 81003; 74177; 99284; 96374; 96376; 96361; J1170; Q9967

== ENCOUNTER → 2023-05-09 | Outpatient (CLI) | payer MEDICAID ==
[2023-05-09 14:33] LABS: HCT 47.3 % (39.6-50.0); HGB 15.6 d/dL (12.0-15.0); MCH 30.8 pg (27.0-32.0); MCV 93.3 FL (80.0-97.0); Mean Platelet Volume 9.9 FL (9.5-12.2); NRBC Per 100 WBC 0 X 10*3/uL (0.00-0.01); Platelet Count 242 X 10*3/uL (140-440); RBC 5.07 X 10*6/uL (4.40-5.60); RDW 12.1 % (11.5-14.5); WBC 6.76 X 10*3/uL (4.50-10.00)
[2023-05-09 14:56] LABS: ALT 60 U/L (10-49); AST 27 U/L (14-35); Albumin 4.7 d/dL (3.8-4.9); Albumin/Globulin Ratio 2.24 Ratio (1.60-3.17); Alkaline Phosphatase 71 U/L (41-126); BUN/Creat Ratio 20.78 Ratio (12.00-20.00); Blood Urea Nitrogen 18.7 mg/dL (9.0-27.0); Calcium 10.1 mg/dL (8.7-10.3); Carbon Dioxide 28.8 mmol/L (21.6-31.8); Chloride 104 mmol/L (96-109); Chol/HDL Ratio 3.61 Ratio; Globulin 2.1 d/dL (1.6-3.3); Glucose 117 mg/dL (70-110); LDL Cholesterol,Calculated 76.3 mg/dL (0.0-131.0); Sodium 142 mmol/L (135-145); Total Bilirubin 0.5 mg/dL (0.3-1.2); Total Protein 6.8 d/dL (6.2-8.2)
== END | disposition home or self-care (01) ==
LOC: LABWHC1 09:08
PROVIDERS: ATTEND Family Medicine
DX: E11.59 Type 2 diabetes mellitus with other circulatory complications (principal); E66.9 Obesity, unspecified
CPT/HCPCS: 36415; 80053; 80061; 83036; 84443; 85027

== ENCOUNTER → 2023-06-21 | Outpatient (CLI) | payer MEDICAID | END | disposition home or self-care (01) | LOC: LABWHC1 13:29 | PROVIDERS: ATTEND Urology | DX: N39.9 Disorder of urinary system, unspecified (principal) | CPT/HCPCS: 36415; 84153 ==

== ENCOUNTER → 2023-09-25 | Outpatient (CLI) | payer MEDICAID ==
[2023-09-25 18:18] LABS: HCT 46.6 % (39.6-50.0); HGB 15.5 g/dL (13.0-17.0); MCH 30.8 pg (27.0-32.0); MCHC 33.3 g/dL (32.0-37.0); MCV 92.5 FL (80.0-97.0); Mean Platelet Volume 9.4 FL (9.5-12.2); NRBC Per 100 WBC 0 X 10*3/uL (0.00-0.01); Platelet Count 260 X 10*3/uL (140-440); RBC 5.04 X 10*6/uL (4.40-5.60); RDW 12.3 % (11.5-14.5)
[2023-09-25 18:50] LABS: ALT 59 U/L (10-49); AST 31 U/L (14-35); Albumin 4.8 g/dL (3.8-4.9); Albumin/Globulin Ratio 2.18 Ratio (1.60-3.17); Alkaline Phosphatase 67 U/L (41-126); BUN/Creat Ratio 19.88 Ratio (12.00-20.00); Blood Urea Nitrogen 15.9 mg/dL (9.0-27.0); Calcium 10.2 mg/dL (8.7-10.3); Carbon Dioxide 26.5 mmol/L (21.6-31.8); Chloride 103 mmol/L (96-109); Chol/HDL Ratio 4.56 Ratio; Globulin 2.2 g/dL (1.6-3.3); Glucose 98 mg/dL (70-110); LDL Cholesterol,Calculated 97.2 mg/dL (0.0-131.0); Potassium 4.8 mmol/L (3.5-5.5); Sodium 142 mmol/L (135-145); Total Bilirubin 0.8 mg/dL (0.3-1.2)
== END | disposition home or self-care (01) ==
LOC: LABWHC1 12:30
PROVIDERS: ATTEND Family Medicine
DX: E11.65 Type 2 diabetes mellitus with hyperglycemia (principal)
CPT/HCPCS: 36415; 80053; 80061; 83036; 84443; 85027

== ENCOUNTER → 2023-10-18 | Outpatient (CLI) | payer MEDICAID ==
--- NOTE | 2023-10-18 11:59 | FL ---
EXAMINATION TYPE: FL barium swallow DATE OF EXAM: 10/18/2023 CLINICAL INDICATION: 53-year-old male R13.19, dysphagia, sensation of food taking a long time to go d own. History of throat cancer in the past. COMPARISON: None Total Fluoroscopy Time: 2 minutes 30 seconds BFZ=641.21 mGycm2 51 images obtained. FINDINGS: Images of the hypopharynx and cervical esophagus show residuals coating the posterior tongue base, wi thin the vallecula, posterior wall of the pharynx, and within the piriform sinuses. This takes a coup le swallows to promote partial clearance. Otherwise, the thoracic portion has a normal course and caliber. Moderate dysmotility of the esophagu s is demonstrated with markedly blunted secondary stripping waves and mild tertiary peristaltic waves . There is residual contrast column along with some intraesophageal reflux encountered when the patie nt is prone/supine. The mucosa is normal and no persistent filling defect is encountered. There is a tiny sliding hiatal hernia demonstrated. Gastroesophageal reflux not elicited with Valsalv a positional maneuvers. IMPRESSION: 1. There appears to be some generalized moderate esophageal dysmotility with markedly blunted seconda ry stripping waves. Additional residuals in the throat and decreased pharyngeal peristalsis could be a product of prior radiation therapy change. 2. No stricture or abnormal filling defect is seen. 3. Tiny sliding hiatal hernia. No gastroesophageal reflux seen during the course of the exam.
== END | disposition home or self-care (01) ==
LOC: RADUSWWP 09:45
PROVIDERS: ATTEND Otolaryngology
DX: K44.9 Diaphragmatic hernia without obstruction or gangrene (principal); K22.4 Dyskinesia of esophagus; R13.19 Other dysphagia
CPT/HCPCS: 74220

== ENCOUNTER → 2023-10-30 | Outpatient (CLI) | payer MEDICAID ==
--- NOTE | 2023-10-30 10:15 | US ---
EXAMINATION TYPE: US thyroid st tissue head/neck DATE OF EXAM: 10/30/2023 COMPARISON: CLINICAL INDICATION: Male, 53 years old with history of E04.1 THYROID NODULE; Patient states having a history of thyroid nodule GLAND SIZE: Right Lobe: 5.1 x 1.6 x 2.1 cm Overall Parenchyma: homogeneous Left Lobe: 5.2 x 2.3 x 2.4 cm Overall Parenchyma: homogeneous Isthmus Thickness: 0.6 cm NODULES RIGHT: # of nodules measured on right: 0 LEFT: # of nodules measured on left: 1 1. 2.5 X 2.5 x 2.0 cm, lower medial, mixed cystic and solid, hypoechoic nodule, which is wider than tall, with smooth margins, without echogenic foci. Prior size: 2.2 x 1.8 x 1.6 cm from 09/2020 ISTHMUS: # of nodules measured in the isthmus: 0 Bilateral neck scanned, no evidence of lymphadenopathy. IMPRESSION: 1. Mildly suspicious nodule left lobe thyroid. Fine-needle aspiration recommended. 2017 ACR TI-RADS LEVEL: TR-RADS 3 - Mildly Suspicious: Follow if > 1.5 cm, FNA if > 2.5 cm *Highest TI-RADS level nodule reported
== END | disposition home or self-care (01) ==
LOC: RADUSWWP 09:38
PROVIDERS: ATTEND Otolaryngology
DX: E04.1 Nontoxic single thyroid nodule (principal)
CPT/HCPCS: 76536

== ENCOUNTER → 2024-02-26 | Outpatient (CLI) | payer MEDICAID ==
[2024-02-26 15:19] LABS: ALT 63 U/L (10-49); AST 45 U/L (14-35); Albumin/Globulin Ratio 2.38 Ratio (1.60-3.17); Alkaline Phosphatase 75 U/L (41-126); Blood Urea Nitrogen 19.6 mg/dL (9.0-27.0); Calcium 10.3 mg/dL (8.7-10.3); Carbon Dioxide 25.3 mmol/L (21.6-31.8); Chloride 102 mmol/L (96-109); Chol/HDL Ratio 2.98 Ratio; Globulin 2.1 g/dL (1.6-3.3); Glucose 108 mg/dL (70-110); LDL Cholesterol,Calculated 61.7 mg/dL (0.0-131.0); Potassium 4.2 mmol/L (3.5-5.5); Rheumatoid Factor, Qnt <15 IU/mL (0-15); Sodium 141 mmol/L (135-145); Total Bilirubin 0.8 mg/dL (0.3-1.2); Total Protein 7.1 g/dL (6.2-8.2)
[2024-02-26 19:12] LABS: HCT 45.7 % (39.6-50.0); HGB 15.3 g/dL (13.0-17.0); MCH 30.8 pg (27.0-32.0); MCHC 33.5 g/dL (32.0-37.0); MCV 92.1 FL (80.0-97.0); Mean Platelet Volume 9.6 FL (9.5-12.2); NRBC Per 100 WBC 0 X 10*3/uL (0.00-0.01); Platelet Count 252 X 10*3/uL (140-440); RBC 4.96 X 10*6/uL (4.40-5.60); RDW 11.7 % (11.5-14.5); WBC 9.54 X 10*3/uL (4.50-10.00)
[2024-02-26 20:40] LABS: Cyclic Citrull Pep IgG Unit <1.5 U/mL (<=3.9); Cyclic Citrullinated Pep IgG Negative
== END | disposition home or self-care (01) ==
LOC: LABWHC1 12:17
PROVIDERS: ATTEND Family Medicine
DX: E11.59 Type 2 diabetes mellitus with other circulatory complications (principal); M15.9 Polyosteoarthritis, unspecified
CPT/HCPCS: 36415; 80053; 80061; 83036; 84443; 85027; 86200; 86431

== ENCOUNTER 2024-08-07 23:26 | Emergency (ER) | payer MEDICAID ==
[2024-08-07 23:30] VITALS: RESP 18; TEMP 98
--- NOTE | 2024-08-07 23:58 | ED ---
Abdominal Pain HPI - General Chief Complaint: Abdominal Pain Stated Complaint: Abdominal Pain, NVD Time Seen by Provider: 08/07/24 23:42 Source: patient Mode of arrival: ambulatory - History of Present Illness Initial Comments: 54-year-old male presenting with chief complaint of abdominal pain. States that this has been ongoing for about 3 weeks. It is a cramping pain in the center of the abdomen. He also mitts to nausea vomiting and diarrhea. Around a month ago his Mounjaro dose increased. He does have history of a previous hernia repair surgery. Denies alcohol or drug use. No dysuria or hematuria. No fever. - Related Data Home Medications Medication Instructions Recorded Confirmed Alpha-3 Fatty Acids/Fish Oil [Fish 1 tab PO DAILY 06/28/16 03/24/23 Oil 1,000 mg Softgel] Omeprazole [PriLOSEC] 20 mg PO AC-BRKFST 06/28/16 03/24/23 atenoloL [Tenormin] 25 mg PO DAILY 06/28/16 03/24/23 lisinopriL [Zestril] 20 mg PO DAILY 06/28/16 03/24/23 Multivitamin [Multivitamins Adult 1 tab PO DAILY 11/20/18 03/24/23 Gummies] Acetaminophen Tab [Tylenol Tab] 500 - 1,000 mg PO Q4-6H PRN 03/06/23 03/24/23 Ibuprofen 600 mg PO QID PRN 03/06/23 03/24/23 Phentermine HCl 18.75 mg PO DAILY 03/06/23 03/24/23 Tirzepatide [Mounjaro] 2.5 mg SQ MO 03/06/23 03/24/23 Acyclovir 5% Oint [Zovirax Oint] 1 applic TOPICAL BID PRN 03/24/23 03/24/23 Amitriptyline HCl 10 mg PO HS 03/24/23 03/24/23 Hydrocortisone Oint 1 applic TOPICAL BID PRN 03/24/23 03/24/23 [Hydrocortisone 2.5% Oint] Pravastatin Sodium [Pravachol] 20 mg PO HS 03/24/23 03/24/23 Triamcinolone 0.1% Cream [Kenalog 1 applicatio TOPICAL BID PRN 03/24/23 03/24/23 0.1% Cream] tadalafiL 20 mg PO Q48H PRN 03/24/23 03/24/23 Previous Rx's Medication Instructions Recorded HYDROcodone/APAP 7.5-325MG [[place] 1 tab PO Q4HR PRN 3 Days #18 tab 03/24/23 7.5-325] Dicyclomine [Bentyl] 10 mg PO TID #10 capsule 08/08/24 Ondansetron Odt [Zofran Odt] 4 mg PO Q8HR PRN #20 tab 08/08/24 Allergies Allergy/AdvReac Type Severity Reaction Status Date / Time Penicillins Allergy Rash/Hives Verified 08/07/24 23:30 ibuprofen AdvReac Swelling Verified 08/07/24 23:30 Review of Systems ROS Statement: Those systems with pertinent positive or pertinent negative responses have been documented in the HPI. ROS Other: All systems not noted in ROS Statement are negative. 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 Thyroid nodule - stable. "Liver enzymes high due to diet". Torn left lateral meniscus. History of Any Multi-Drug Resistant Organisms: None Reported Past Surgical History: Cholecystectomy, Hernia Repair, Orthopedic Surgery Additional Past Surgical History / Comment(s): Left knee surgery, growth removed from throat(myoplasma cytoma), varicose vein procedure. Past Anesthesia/Blood Transfusion Reactions: No Reported Reaction Past Psychological History: No Psychological Hx Reported Smoking Status: Never smoker Past Alcohol Use History: None Reported Past Drug Use History: Marijuana - Past Family History Mother Family Medical History: Cancer Additional Family Medical History / Comment(s): Skin cancer. General Exam Limitations: no limitations General appearance: alert, in no apparent distress Head exam: Present: atraumatic, normocephalic Eye exam: Present: normal appearance, EOMI Neck exam: Present: normal inspection. Absent: meningismus Respiratory exam: Present: normal lung sounds bilaterally. Absent: respiratory distress, wheezes, rales, rhonchi, stridor Cardiovascular Exam: Present: regular rate, normal rhythm, normal heart sounds. Absent: systolic murmur, diastolic murmur, rubs, gallop, clicks GI/Abdominal exam: Present: soft. Absent: distended, tenderness, guarding, rebound, rigid Neurological exam: Present: alert, oriented X3 Psychiatric exam: Present: normal affect, normal mood Skin exam: Present: warm, dry Course Vital Signs 08/07/24 23:27 Temperature 98.0 F Pulse Rate 118 H Respiratory 18 Rate Blood Pressure 140/87 O2 Sat by Pulse 95 Oximetry Medical Decision Making - Medical Decision Making Was pt. sent in by a medical professional or institution (, [facility], [employer], urgent care, hospital, or fpc...) When possible be specific @ -No Did you speak to anyone other than the patient for history (EMS, parent, family, police, friend...)? What history was obtained from this source @ -No Did you review nursing and triage notes (agree or disagree)? Why? @ -I reviewed and agree with nursing and triage notes Were old charts reviewed (outside hosp., previous admission, EMS record, old EKG, old radiological studies, urgent care reports/EKG's, fpc records)? Report findings @ -No old charts were reviewed Differential Diagnosis (chest pain, altered mental status, abdominal pain women, abdominal pain men, vaginal bleeding, weakness, fever, dyspnea, syncope, headache, dizziness, GI bleed, back pain, seizure, CVA, palpatations, mental health, musculoskeletal)? @ -MDM Differential Abdominal Pain Men: Appendicitis, cholecystitis, diverticulosis, ischemic bowel, pancreatitis, hepatitis, UTI, gastroenteritis, AAA, incarcerated hernia, bowel obstruction, constipation, inflammatory bowel, hepatitis, peptic ulcer disease, splenic infarction, perforated viscus, testicular torsion... This is not meant to be an all-inclusive list EKG interpreted by me (3pts min.). @ -As above X-rays interpreted by me (1pt min.). @ -KUB shows overall nonobstructive bowel gas pattern CT interpreted by me (1pt min.). @ -None done U/S interpreted by me (1pt. min.). @ -None done What testing was considered but not performed or refused? (CT, X-rays, U/S, labs)? Why? @ -None What meds were considered but not given or refused? Why? @ -None Did you discuss the management of the patient with other professionals (professionals i.e. , PA, [employer], lab, RT, psych nurse, social work therapist, radiology technician, teacher, financial aid officer, supportive employment case manager)? Give summary @ -No Was smoking cessation discussed for >3mins.? @ -No Was critical care preformed (if so, how long)? @ -No Were there social determinants of health that impacted care today? How? (Homelessness, low income, unemployed, alcoholism, drug addiction, t ransportation, low edu. Level, literacy, decrease access to med. care, prison, rehab)? @ -No Was there de-escalation of care discussed even if they declined (Discuss DNR or withdrawal of care, Hospice)? DNR status @ -No What co-morbidities impacted this encounter? (DM, HTN, Smoking, COPD, CAD, Cance r, CVA, ARF, Chemo, Hep., AIDS, mental health diagnosis, sleep apnea, morbid obesity)? @ -None Was patient admitted / discharged? Hospital course, mention meds given and route, prescriptions, significant lab abnormalities, going to OR and other pertinent info. @ -54-year-old male presenting with chief complaint of abdominal cramping as well as nausea vomiting and diarrhea. Has been ongoing for about 3 weeks. He increased his Mounjaro dose about 4 weeks ago. Abdomen is soft, nontender, nondistended. WBC 12.1, likely reactive. He is slightly dehydrated with BUN 22 and 2+ ketones, mild tachycardia, he is given IV fluids. He is also given Bentyl, Toradol, Zofran. KUB x-ray shows overall nonobstructive bowel gas pattern. Symptoms are likely due to increase Mounjaro dosing. Patient is educated on today's findings and instructed to follow-up with his PCP regarding these adverse effects. Discharged. Follow-up with PCP. Report back to ER with any new or worsening symptoms. Discussed return parameters and answered all questions. Patient conveyed verbal understanding and agreed to the plan. I discussed this case in detail with my attending Dr. Fischer Undiagnosed new problem with uncertain prognosis? @ -No Drug Therapy requiring intensive monitoring for toxicity (Heparin, Nitro, Insulin, Cardizem)? @ -No Were any procedures done? @ -No Diagnosis/symptom? @ -Medication side effect Acute, or Chronic, or Acute on Chronic? @ -Acute Uncomplicated (without systemic symptoms) or Complicated (systemic symptoms)? @ -Uncomplicated Side effects of treatment? @ -No Exacerbation, Progression, or Severe Exacerbation? @ -No Poses a threat to life or bodily function? How? (Chest pain, [place], [place], pneumonia, PE, COPD, DKA, ARF, appy, cholecystitis, CVA, Diverticulitis, Homicidal, Suicidal, threat to staff... and all critical care pts) @ -Unlikely - Lab Data Result diagrams: 08/07/24 23:49 08/07/24 23:49 Lab Results 08/07/24 08/07/24 08/07/24 Range/Units 23:49 23:49 23:49 WBC 12.1 H (3.8-10.6) k/uL RBC 5.28 (4.30-5.90) m/uL Hgb 16.0 (13.0-17.5) gm/dL Hct 49.0 (39.0-53.0) % MCV 92.9 (80.0-100.0) fL MCH 30.4 (25.0-35.0) pg MCHC 32.7 (31.0-37.0) g/dL RDW 11.6 (11.5-15.5) % Plt Count 256 (150-450) k/uL MPV 6.8 Neutrophils % 73 % Lymphocytes % 14 % Monocytes % 7 % Eosinophils % 1 % Basophils % 0 % Neutrophils # 8.9 H (1.3-7.7) k/uL Lymphocytes # 1.7 (1.0-4.8) k/uL Monocytes # 0.9 (0-1.0) k/uL Eosinophils # 0.1 (0-0.7) k/uL Basophils # 0.0 (0-0.2) k/uL Sodium 139 (137-145) mmol/L Potassium 4.0 (3.5-5.1) mmol/L Chloride 103 (98-107) mmol/L Carbon Dioxide 29 (22-30) mmol/L Anion Gap 7 mmol/L BUN 22 H (9-20) mg/dL Creatinine 0.69 (0.66-1.25) mg/dL Est GFR (CKD-EPI)AfAm >90 (>60 ml/min/1.73 sqM) Est GFR (CKD-EPI)NonAf >90 (>60 ml/min/1.73 sqM) Glucose 120 H (74-99) mg/dL Plasma Lactic Acid Freedom (0.7-2.0) mmol/L Calcium 9.7 (8.4-10.2) mg/dL Total Bilirubin 1.2 (0.2-1.3) mg/dL AST 43 (17-59) U/L ALT 73 H (4-49) U/L Alkaline Phosphatase 68 (38-126) U/L Total Protein 7.1 (6.3-8.2) g/dL Albumin 4.8 (3.5-5.0) g/dL Amylase 38 (30-110) U/L Lipase 99 (23-300) U/L Urine Color Yellow Urine Appearance Clear (Clear) Urine pH 6.0 (5.0-8.0) Ur Specific [place] 1.043 H (1.001-1.035) Urine Protein 1+ H (Negative) Urine Glucose (UA) Negative (Negative) Urine Ketones 2+ H (Negative) Urine Blood Negative (Negative) Urine Nitrite Negative (Negative) Urine Bilirubin Negative (Negative) Urine Urobilinogen 2.0 (<2.0) mg/dL Ur Leukocyte Esterase Negative (Negative) Urine RBC 1 (0-5) /hpf Urine WBC 2 (0-5) /hpf Ur Squamous Epith Cells <1 (0-4) /hpf Urine Bacteria Rare H (None) /hpf Hyaline Casts 9 H (0-2) /lpf Urine Mucus Many H (None) /hpf 08/07/ Range/Units 23:49 WBC (3.8-10.6) k/uL RBC (4.30-5.90) m/uL Hgb (13.0-17.5) gm/dL Hct (39.0-53.0) % MCV (80.0-100.0) fL MCH (25.0-35.0) pg MCHC (31.0-37.0) g/dL RDW (11.5-15.5) % Plt Count (150-450) k/uL MPV Neutrophils % % Lymphocytes % % Monocytes % % Eosinophils % % Basophils % % Neutrophils # (1.3-7.7) k/uL Lymphocytes # (1.0-4.8) k/uL Monocytes # (0-1.0) k/uL Eosinophils # (0-0.7) k/uL Basophils # (0-0.2) k/uL Sodium (137-145) mmol/L Potassium (3.5-5.1) mmol/L Chloride (98-107) mmol/L Carbon Dioxide (22-30) mmol/L Anion Gap mmol/L BUN (9-20) mg/dL Creatinine (0.66-1.25) mg/dL Est GFR (CKD-EPI)AfAm (>60 ml/min/1.73 sqM) Est GFR (CKD-EPI)NonAf (>60 ml/min/1.73 sqM) Glucose (74-99) mg/dL Plasma Lactic Acid Freedom 0.7 (0.7-2.0) mmol/L Calcium (8.4-10.2) mg/dL Total Bilirubin (0.2-1.3) mg/dL AST (17-59) U/L ALT (4-49) U/L Alkaline Phosphatase (38-126) U/L Total Protein (6.3-8.2) g/dL Albumin (3.5-5.0) g/dL Amylase (30-110) U/L Lipase (23-300) U/L Urine Color Urine Appearance (Clear) Urine pH (5.0-8.0) Ur Specific [place] (1.001-1.035) Urine Protein (Negative) Urine Glucose (UA) (Negative) Urine Ketones (Negative) Urine Blood (Negative) Urine Nitrite (Negative) Urine Bilirubin (Negative) Urine Urobilinogen (<2.0) mg/dL Ur Leukocyte Esterase (Negative) Urine RBC (0-5) /hpf Urine WBC (0-5) /hpf Ur Squamous Epith Cells (0-4) /hpf Urine Bacteria (None) /hpf Hyaline Casts (0-2) /lpf Urine Mucus (None) /hpf Disposition Clinical Impression: Medication side effect Disposition: HOME SELF-CARE Condition: Good Instructions (If sedation given, give patient instructions): Gastroparesis (ED) Additional Instructions: Follow-up with your PCP. Report back to ER with any new or worsening symptoms. Prescriptions: Dicyclomine [Bentyl] 10 mg PO TID #10 capsule Ondansetron Odt [Zofran Odt] 4 mg PO Q8HR PRN #20 tab PRN Reason: Nausea Is patient prescribed a controlled substance at d/c from ED?: No Referrals: Heath Bowser MD [Primary Care Provider] - 1-2 days Time of Disposition: 00:43
[2024-08-08] MEDS: KETOROLAC 15 MG/ML 1 ML VIAL IVP STA (00:04)
[2024-08-08] MEDS: ONDANSETRON 4 MG/2 ML VIAL IVP STA (00:05)
[2024-08-08 00:08] LABS: Basophils % (A) 0 %; Eosinophils # (A) 0.1 k/uL (0-0.7); Eosinophils % (A) 1 %; Lymphocytes # (A) 1.7 k/uL (1.0-4.8); Lymphocytes % (A) 14 %; MCH 30.4 pg (25.0-35.0); MCHC 32.7 g/dL (31.0-37.0); MCV 92.9 fL (80.0-100.0); Mean Platelet Volume 6.8; Monocytes # (A) 0.9 k/uL (0-1.0); Monocytes % (A) 7 %; Neutrophils # (A) 8.9 k/uL (1.3-7.7); Neutrophils % (A) 73 %; Platelet Count 256 k/uL (150-450); RBC 5.28 m/uL (4.30-5.90); RDW 11.6 % (11.5-15.5); WBC 12.1 k/uL (3.8-10.6)
[2024-08-08] MEDS: DICYCLOMINE 20 MG TAB PO STA (00:08)
[2024-08-08] MEDS: SODIUM CHLORIDE 0.9% 1,000 ML IV STA (00:09)
[2024-08-08 00:11] LABS: ALT 73 U/L (4-49); AST 43 U/L (17-59); African American GFR (CKD) >90 (>60 ml/min/1.73 sqM); Albumin 4.8 g/dL (3.5-5.0); Alkaline Phosphatase 68 U/L (38-126); Amylase 38 U/L (30-110); Anion Gap 7 mmol/L; Blood Urea Nitrogen 22 mg/dL (9-20); Calcium 9.7 mg/dL (8.4-10.2); Carbon Dioxide 29 mmol/L (22-30); Chloride 103 mmol/L (98-107); Glucose 120 mg/dL (74-99); Lipase 99 U/L (23-300); Non-African American GFR(CKD) >90 (>60 ml/min/1.73 sqM); Sodium 139 mmol/L (137-145); Total Bilirubin 1.2 mg/dL (0.2-1.3); Total Protein 7.1 g/dL (6.3-8.2)
[2024-08-08 00:12] LABS: Appearance,Urine Clear (Clear); Bacteria,Urine Rare /hpf; Bilirubin,Urine Negative (Negative); Blood,Urine Negative (Negative); Color,Urine Yellow; Glucose,Urine (UA) Negative (Negative); Hyaline Casts,Urine 9 /lpf (0-2); Ketones,Urine 2+ (Negative); Leukocyte Esterase,Urine Negative (Negative); Mucus,Urine Many /hpf; Nitrite,Urine Negative (Negative); Protein,Urine 1+ (Negative); RBC,Urine 1 /hpf (0-5); Specific Gravity,Urine 1.043 (1.001-1.035); Squamous Epithelial Cell,Urine <1 /hpf (0-4); WBC,Urine 2 /hpf (0-5)
--- NOTE | 2024-08-08 00:28 | XR ---
EXAMINATION TYPE: XR KUB DATE OF EXAM: 08/08/2024 12:19 AM CLINICAL HISTORY: Abdominal pain with nausea TECHNIQUE: Two Upright KUB images of the abdomen are obtained. COMPARISON: CT abdomen and pelvis March 24, 2023 FINDINGS: Scattered gas is seen in non-distended small and large bowel loops. Cholecystectomy clips a re redemonstrated. Lung bases are clear. Scattered bilateral pelvic phleboliths are redemonstrated. O sseous structures are intact. No free air is seen. IMPRESSION: Overall nonobstructive bowel gas pattern. [facility], , 08/08/2024 12:25 AM
[2024-08-08] MEDS: METOCLOPRAMIDE 5 MG/ML 2 ML VIAL IVP STA (00:59)
[2024-08-08] MEDS: MAG HYDROX/AL HYDROX/SIMETH 30 ML, HYOSCYAMINE ELIXIR 10 ML PO STA (01:38)
[2024-08-08 01:44] VITALS: BP 117/83; PULSE 106
== END 2024-08-08 01:54 | disposition home or self-care (01) ==
LOC: EC 23:26
CPT/HCPCS: 36415; 74018; 80053; 81001; 82150; 83605; 83690; 85025; 96361; 96374; 96375; 99284

== ENCOUNTER → 2024-09-23 | Outpatient (CLI) | payer MEDICAID ==
[2024-09-23 19:07] LABS: Alternaria alternata IgE <0.10 kU/L; Aspergillus fumagatus IgE <0.10 kU/L; Birch IgE 1.65 kU/L; Cat Epith & Dander IgE 0.43 kU/L; Cladosporian herbarum IgE <0.10 kU/L; Cockroach IgE <0.10 kU/L; Dermato. farinae IgE <0.10 kU/L; Dog Dander IgE 0.22 kU/L; Elm IgE <0.10 kU/L; Maple (Box Elder) IgE <0.10 kU/L; Oak IgE <0.10 kU/L; Ragweed,Common IgE 1.48 kU/L; Red Top (Bentgrass) IgE 3.97 kU/L
== END | disposition home or self-care (01) ==
LOC: LABT 11:29
PROVIDERS: ATTEND Otolaryngology
DX: J30.89 Other allergic rhinitis (principal)
CPT/HCPCS: 36415; 82785; 86003

== ENCOUNTER → 2024-09-24 | Outpatient (CLI) | payer MEDICAID ==
[2024-09-24 15:14] LABS: Basophils # (A) 0.03 X 10*3/uL (0.00-0.10); Basophils % (A) 0.3 %; Eosinophils # (A) 0.12 X 10*3/uL (0.04-0.35); Eosinophils % (A) 1.3 %; HCT 45.4 % (39.6-50.0); HGB 15.1 g/dL (13.0-17.0); Lymphocytes # (A) 1.79 X 10*3/uL (0.90-5.00); Lymphocytes % (A) 19.4 %; MCHC 33.3 g/dL (32.0-37.0); MCV 93.2 FL (80.0-97.0); Mean Platelet Volume 9.5 FL (9.5-12.2); Monocytes # (A) 0.63 X 10*3/uL (0.20-1.00); Monocytes % (A) 6.8 %; NRBC Per 100 WBC 0 X 10*3/uL (0.00-0.01); Neutrophils # (A) 6.65 X 10*3/uL (1.80-7.70); Platelet Count 257 X 10*3/uL (140-440); RBC 4.87 X 10*6/uL (4.40-5.60); RDW 12.4 % (11.5-14.5); WBC 9.24 X 10*3/uL (4.50-10.00)
[2024-09-24 15:44] LABS: ALT 94 U/L (10-49); AST 48 U/L (14-35); Albumin 4.8 g/dL (3.8-4.9); Albumin/Globulin Ratio 2.18 Ratio (1.60-3.17); Alkaline Phosphatase 81 U/L (41-126); Calcium 10.2 mg/dL (8.7-10.3); Carbon Dioxide 27.5 mmol/L (21.6-31.8); Chloride 102 mmol/L (96-109); Chol/HDL Ratio 2.95 Ratio; Globulin 2.2 g/dL (1.6-3.3); Glucose 114 mg/dL (70-110); LDL Cholesterol,Calculated 70.4 mg/dL (0.0-131.0); PSA Annual Screen 0.669 ng/mL (0.000-4.000); Potassium 4.7 mmol/L (3.5-5.5); Sodium 141 mmol/L (135-145); Total Bilirubin 0.7 mg/dL (0.3-1.2)
[2024-09-24 17:47] LABS: Microalbumin Creatinine Ratio <10 mg/g Cr (0-30)
== END | disposition home or self-care (01) ==
LOC: LABWHC1 10:54
PROVIDERS: ATTEND Family Medicine
DX: Z12.5 Encounter for screening for malignant neoplasm of prostate (principal); E11.51 Type 2 diabetes mellitus with diabetic peripheral angiopathy without gangrene; E11.59 Type 2 diabetes mellitus with other circulatory complications; I25.10 Atherosclerotic heart disease of native coronary artery without angina pectoris; K58.9 Irritable bowel syndrome, unspecified; F51.04 Psychophysiologic insomnia; E66.3 Overweight
CPT/HCPCS: 80061; 80053; 84443; 85025; 82043; 82570; 83036; 36415; G0103

== ENCOUNTER → 2024-09-29 | Outpatient (CLI) | payer MEDICAID ==
--- NOTE | 2024-09-29 11:08 | US ---
EXAMINATION TYPE: US thyroid st tissue head/neck DATE OF EXAM: 09/29/2024 COMPARISON: US 2023 CLINICAL INDICATION: Male, 54 years old with history of E04.1 Nontoxic single thyroid nodule; TECHNIQUE: Grayscale and color Doppler imaging of the thyroid gland. FINDINGS: GLAND SIZE: Right Lobe: 5.6 x 1.8 x 2.1 cm Overall Parenchyma: heterogeneous Left Lobe: 5.9 x 2.5 x 1.9 cm Overall Parenchyma: heterogeneous Isthmus Thickness: 0.5 cm NODULES RIGHT: # of nodules measured on right: 0 LEFT: # of nodules measured on left: 1 1. 2.6 X 1.8 x 2.4 cm, lower medial, Prior size: 2.5 x 2.0 x 2.5 cm TIRADS Score: 4 TIRADS Category 4: Composition: Solid or almost completely solid (2 points). Echogenicity: Hypoechoic (2 points). Shape: Wider than tall (0 points). Margin: Smooth (0 points). Echogenic foci: None or large comet-tail artifacts (0 points) Recommendation: If >1.5cm: FNA; If >1cm: Follow up at 1,2, 3,5 years ISTHMUS: # of nodules measured in the isthmus: 0 Bilateral neck scanned, no evidence of lymphadenopathy. IMPRESSION: Left thyroid nodule that meet criteria for fine-needle aspiration if not already performe dАндрей [facility], , 09/29/2024 11:06 AM
== END | disposition home or self-care (01) ==
LOC: RADUSWWP 10:27
PROVIDERS: ATTEND Otolaryngology
DX: E04.1 Nontoxic single thyroid nodule (principal)
CPT/HCPCS: 76536

== ENCOUNTER → 2025-01-21 | Outpatient (CLI) | payer MEDICAID ==
[2025-01-21 18:14] LABS: HCT 43.9 % (39.6-50.0); HGB 14.9 g/dL (13.0-17.0); MCH 30.8 pg (27.0-32.0); MCHC 33.9 g/dL (32.0-37.0); MCV 90.9 FL (80.0-97.0); Mean Platelet Volume 9.4 FL (9.5-12.2); NRBC Per 100 WBC 0 X 10*3/uL (0.00-0.01); Platelet Count 268 X 10*3/uL (140-440); RBC 4.83 X 10*6/uL (4.40-5.60); RDW 11.6 % (11.5-14.5); WBC 7.88 X 10*3/uL (4.50-10.00)
[2025-01-21 18:35] LABS: ALT 44 U/L (10-49); AST 28 U/L (14-35); Albumin 4.7 g/dL (3.8-4.9); Albumin/Globulin Ratio 2.04 Ratio (1.60-3.17); Alkaline Phosphatase 66 U/L (41-126); BUN/Creat Ratio 15.14 Ratio (12.00-20.00); Blood Urea Nitrogen 10.6 mg/dL (9.0-27.0); Calcium 9.8 mg/dL (8.7-10.3); Chloride 104 mmol/L (96-109); Globulin 2.3 g/dL (1.6-3.3); Glucose 115 mg/dL (70-110); LDL Cholesterol,Calculated 68.4 mg/dL (0.0-131.0); Potassium 4.8 mmol/L (3.5-5.5); Sodium 141 mmol/L (135-145); Total Bilirubin 0.5 mg/dL (0.3-1.2)
[2025-01-21 19:22] LABS: Microalbumin Creatinine Ratio <16 mg/g Cr (0-30); Urine Creatinine 73.3 mg/dL (39.0-259.0)
== END | disposition home or self-care (01) ==
LOC: LABWHC1 14:09
PROVIDERS: ATTEND Family Medicine
DX: E11.69 Type 2 diabetes mellitus with other specified complication (principal); E78.5 Hyperlipidemia, unspecified
CPT/HCPCS: 36415; 80053; 80061; 82043; 82570; 83036; 84443; 85027